=== PATIENT | male | born 1995 | race African-American/Black ===

== ENCOUNTER 2020-02-09 16:03 | Emergency (ER) | payer SELFPAY ==
--- NOTE | 2020-02-09 16:48 | CT ---
CT BRAIN WITHOUT CONTRAST: HISTORY: Trauma, headache FINDINGS: No evidence of acute infarct, hemorrhage, midline shift or abnormal extra-axial fluid collections is seen. The ventricular size is appropriate and the basilar cisterns are patent. The bony calvarium is intact. The visualized paranasal sinuses and mastoid air cells are well aerated. There is suggesti on of a fracture involving the right nasal bone. IMPRESSION: No CT evidence of acute intracranial process.
--- NOTE | 2020-02-09 16:49 | RAD ---
XR Hand Rt 3 View STANDARD HISTORY: Trauma, right hand pain FINDINGS: No fracture or dislocation is identified.
== END 2020-02-09 17:03 ==
LOC: MADERS 16:03
DX: S00.83XA Contusion of other part of head, initial encounter (principal); S60.221A Contusion of right hand, initial encounter; F41.9 Anxiety disorder, unspecified; F32.9 Major depressive disorder, single episode, unspecified; F43.10 Post-traumatic stress disorder, unspecified; F17.210 Nicotine dependence, cigarettes, uncomplicated; J45.909 Unspecified asthma, uncomplicated; V89.2XXA Person injured in unspecified motor-vehicle accident, traffic, initial encounter
CPT/HCPCS: 70450